=== PATIENT | female | born 1965 | race Caucasian/White ===

== ENCOUNTER 2018-12-05 10:29 | Day surgery (SDC) | payer BC ==
[2018-12-05] MEDS: SOD CHLORIDE 0.9% 1,000 ML IV (11:56)
[2018-12-05] MEDS ORDERED: CEFAZOLIN 2 GM/50 ML (PMX) 50 ML IVPB (12:30)
[2018-12-05] MEDS ORDERED: MIDAZOLAM 1 MG/ML 2 ML INJ (13:14)
[2018-12-05] MEDS ORDERED: LIDOCAINE 100 MG SYRINGE (13:14)
[2018-12-05] MEDS ORDERED: PROPOFOL 20 ML ×2 (13:14→14:07)
[2018-12-05] MEDS ORDERED: FENTAnyl 50 MCG/ML VIAL (13:14)
[2018-12-05] MEDS ORDERED: CEFAZOLIN 1 GM INJ (13:14)
[2018-12-05] MEDS ORDERED: BUPIVACAINE 0.25%/EPI (SDV) 30 ML INJ (13:24)
[2018-12-05] MEDS ORDERED: ONDANSETRON 4 MG INJ IV ×2 (13:30→14:30)
[2018-12-05] MEDS ORDERED: OXYCODONE/ACETAMINOPHEN (5/325) TAB PO ×2 (13:30)
[2018-12-05] MEDS ORDERED: FENTAnyl 50 MCG/ML VIAL IV ×3 (13:30)
[2018-12-05] MEDS: LIDOCAINE 1%/EPI (1:100,000) (MDV) 20 ML (14:09)
[2018-12-05] MEDS: BUPIVACAINE 0.25% (MPF) 30 ML INJ (14:09)
[2018-12-05] MEDS ORDERED: IBUPROFEN 600 MG TAB PO (14:30)
[2018-12-05] MEDS ORDERED: KETOROLAC 30 MG INJ IV (14:30)
== END 2018-12-05 16:00 | disposition home or self-care (01) ==
LOC: SDS 10:29
DX: D23.71 Other benign neoplasm of skin of right lower limb, including hip (principal)
CPT/HCPCS: 14020; 88307